=== PATIENT | male | born 1995 | race Caucasian/White ===

== ENCOUNTER 2017-02-27 12:34 | Emergency (ER) | payer SELFPAY | END 2017-02-27 14:15 | disposition home or self-care (01) | LOC: D.ER 12:34 | DX: H66.42 Suppurative otitis media, unspecified, left ear (principal) ==

== ENCOUNTER 2017-03-16 21:57 | Emergency (ER) | payer MEDICAID | END 2017-03-17 00:57 | disposition home or self-care (01) | LOC: D.ER 21:57 | DX: L72.3 Sebaceous cyst (principal); R60.0 Localized edema ==